=== PATIENT | female | born 2000 | race Caucasian/White ===

== ENCOUNTER 2022-12-28 21:42 | Emergency (ER) | payer SELFPAY ==
[2022-12-28 21:41] VITALS: BP 112/90; PULSE 60; RESP 14; TEMP 36.4; O2SAT 95
--- NOTE | 2022-12-28 21:44 | ED.HA ---
HPI - Headache General Chief Complaint: Headache Stated Complaint: MIGRAINE BROWNING Time Seen by Provider: 12/28/22 21:44 Source: patient and EMS Mode of arrival: EMS Limitations: no limitations History of Present Illness HPI Narrative: Patient is a 22-year-old who presents emergency department today via EMS for evaluation of a migraine headache that started. EMS did give the patient Zofran and ketorolac and IV fluids. she denies hx of migraines. states her mica has them. she has only had 1 other one this past year. she states the light bothers her. she has had nausea and vomiting. This started this morning. denies fever, chills, dizziness, vision changes, sound sensitivity, chance of , recent fall/injury, URI symptoms. she does admit to a hx of seziures and takes Keppra. Does not currently see any neurologist as she has to get one. smokes marijuana she states. denies other drug use or alcohol use or tobacco use. Related Data Allergies Allergy/AdvReac Type Severity Reaction Status Date / Time No Known Allergies Allergy Verified 12/28/22 21:49 Review of Systems Review of Systems: CONSTITUTIONAL: Denies fever, chills, or sweats. EYES: Denies visual changes, redness, or discharge. ENT: Denies rhinorrhea, congestion, sore throat, or otalgia. CARDIOVASCULAR: Denies chest pain, palpitations, or edema. RESPIRATORY: Denies cough or dyspnea. GASTROINTESTINAL: +nausea and vomiting. Denies abdominal pain, diarrhea. GENITOURINARY: Denies dysuria or hematuria. SKIN: Denies rash or itching. MUSCULOSKELETAL: Denies back pain, joint pain, or myalgia. NEUROLOGIC:+headache migraine. Denies numbness, or weakness. PSYCHIATRIC: Denies anxiety or depression. All systems reviewed & are unremarkable except as noted in HPI and below Exam Narrative: GENERAL: Well-appearing, well-nourished, and in no acute distress. HEAD: Normocephalic, atraumatic. EYES: PERRLA and EOMI. ENT: Nares clear, no rhinorrhea or epistaxis. Mucous membranes moist. NECK: Supple. CHEST: Clear to auscultation. No respiratory distress. HEART: Regular rate and rhythm. No murmur heard. Normal peripheral pulses. ABDOMEN: Soft, nontender, nondistended, normal active bowel sounds. EXTREMITIES: Normal range of motion. No edema. SKIN: Warm, dry, no rash. NEURO: No focal deficits. Alert and oriented x3. CN II-XII grossly intact. PSYCH: Normal mood and affect. Course Vital Signs Vital signs: Vital Signs Temperature 97.6 F 12/28/22 21:41 Pulse Rate 60 12/28/22 21:41 Respiratory Rate 14 12/28/22 21:41 Blood Pressure 112/90 12/28/22 21:41 Pulse Oximetry 95 12/28/22 21:41 Oxygen Delivery Room Air 12/28/22 21:41 Temperature 97.9 F 12/28/22 23:34 Pulse Rate 62 12/28/22 23:34 Respiratory Rate 15 12/28/22 23:34 Blood Pressure 112/76 12/28/22 23:34 Pulse Oximetry 100 12/28/22 23:34 Oxygen Delivery Room Air 12/28/22 21:41 MDM - Headache MDM Narrative Medical decision making narrative: presents to the emergency department for headache. Patient is hemodynamically stable. No focal neurological or cranial nerve deficits on exam. No meningeal signs. The headache was gradual in onset, it is not exertional and does not appear consistent with subarachnoid hemorrhage or intracranial bleeding. No trauma. Patient is given headache cocktail including Reglan, Benadryl, Toradol and Zofran was given via EMS with fluids. On reevaluation, the patient feels significantly better with the headache resolved- she was sleeping comfortably. No neurological deficits.Patient is comfortable going home for outpatient follow-up with primary care physician and/or neurology and provided with strict return precautions, especially for worsening headaches, neck pain/stiffness, fever or weakness, numbness/tingling or persistent vomiting.Patient is nontoxic in appearance. Stable re-evaluation exam just before discharge. Patient in no acute distres
[2022-12-28] MEDS: METOCLOPRAMIDE HCL INJ 10 MG/2 ML VIAL IV PUSH (21:58)
[2022-12-28] MEDS: diphenhydrAMINE HCl INJ 50 MG/ML VIAL IV PUSH (21:58)
[2022-12-28 22:58] VITALS: BP 104/62; PULSE 62; RESP 15; O2SAT 100
[2022-12-28 23:34] VITALS: BP 112/76; PULSE 62; RESP 15; TEMP 36.6; O2SAT 100
== END 2022-12-28 23:35 | disposition home or self-care (01) ==
PROVIDERS: Emergency Provider Nurse Practitioner
DX: G43.909 Migraine, unspecified, not intractable, without status migrainosus (principal)
CPT/HCPCS: 96374; 96375; 99284; J1200; J2765